=== PATIENT | male | born 1990 | race Caucasian/White ===

== ENCOUNTER → 2017-01-02 | Outpatient (CLI) | payer SELFPAY ==
--- NOTE | 2017-01-02 13:34 | PE ---
[facility] Interpretive Statements [email or web address]
== END ==
LOC: RT 11:53
PROVIDERS: ATTEND Family Medicine
DX: Z02.1 Encounter for pre-employment examination (principal)
CPT/HCPCS: 94375